=== PATIENT | female | born 1990 | race Caucasian/White ===

== ENCOUNTER 2018-08-31 14:53 | Emergency (ER) | payer OTHER ==
[2018-08-31] MEDS ORDERED: IBUPROFEN 600 MG TAB PO ONE (15:57)
--- NOTE | 2018-08-31 15:57 | EDPHY ---
General Time Seen by Provider: 08/31/18 15:49 Narrative: CHIEF COMPLAINT: Fall, and injury HISTORY OF PRESENT ILLNESS: Patient presents with complaints of fall from a roller blades with injury to the right hand. She reports rollerblading last night when she fell backwards, landing on her right hand. She thinks that she twisted her hand awkwardly. She states that she has pain in the right hand only, at the base of the little finger. She has no headache or neck pain. No chest, back or abdominal pain. No numbness tingling weakness. The pain the hand is [id number] rest. Moderate to severe with palpation movement. Radiates into the forearm per no pain in the ipsilateral elbow or shoulder. No bleeding or laceration. No other associated complaints or modifying factors. DOMINANT EXTREMITY: Right-hand dominant ESTABLISHED ORTHOPEDIST: None REVIEW OF SYSTEMS: Ten systems reviewed and are negative unless otherwise noted in the HPI PAST MEDICAL HISTORY: Uncomplicated PAST SURGICAL HISTORY: No surgical history SOCIAL HISTORY: Occasional marijuana use. 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 Atraumatic. Pupils equal round react. EOM symmetric. Cardiovascular: Radial pulses are symmetric 2+. There is brisk cap refill the fingers the right hand with good signs of perfusion of the right upper extremity. Neurological: A&O, light and 2 point sensory symmetric on the 4th and 5th fingers of the right hand. Unable to test class 1 owner operator strength due to pain in the hand but interossei strength is symmetric. Skin: Warm and dry, no rash probe mild ecchymosis overlying the dorsum of the right hand over the 4th and 5th metacarpal. No laceration or puncture Extremities: Swelling, tenderness and ecchymosis over the 4th and 5th metacarpals of the right hand. There is no tenderness of the right snuffbox, right elbow radial head. There is no pain with full extension of the right elbow. No tenderness of the right shoulder. Unable to fully test range of motion of the right hand but she does retain flexion extension with movement of the interossei is symmetric to the left upper extremity. Psychiatric: Mood and affect normal DIFFERENTIAL DIAGNOSES: Including but not limited to metacarpal fracture, phalanx fracture, dislocation , subluxation, contusion, hematoma, sprain, strain MDM: 3:40 p.m. Fall with injury to the right hand involving the 4th and 5th MCP joints. There is moderate swelling ecchymosis. Range of motion is difficult to fully test due to pain but she does retain some flexion extension of the hand with no deficit of the wrist. There is no tenderness of the ipsilateral wrist, elbow or shoulder. She is neuro intact with no signs of compartment syndrome. X- rays pending. 4:20 p.m. X-ray as read by me, without radiologist reveals fracture at the base of the right 5th proximal phalanx. There is extension into the MCP joint. There is no dislocation of the finger. This is a closed fracture. She is neuro intact distally. I have ordered a splint placement. 5:00 p.m. Patient re-evaluated. She has been placed in an ulnar gutter splint. We discussed splint care, ice, elevation anti-inflammatories. We discussed follow up with hand surgeon for definitive care and she does have a fracture of the finger that may require open reduction internal fixation. We discussed strict ED precautions for intolerable pain, numbness, tingling, weakness, signs of infection. We discuss pain medication for breakthrough pain as needed. I have answered all of her questions. Her splint is in place and she is neuro intact distally. She is discharged home stable condition Procedure: splint placement Indication: Right little finger proximal phalanx fracture Consent: Verbal Description: In conjunction with ED oil well fishing tool technician, Patient was placed in an ulnar gutter using Ortho Glass and Wallace wrap. This was done with flexion of the MCP of the 4th and 5th fingers and extension of the wrist. She tolerated this well. No complication. CMS intact postprocedure. SUPERVISION: This patient was independently evaluated without direct involvement of or examination by the attending physician. - Diagnostics Imaging Results: Imaging Impressions Hand X-Ray 08/31/18 14:58 Impression: Acute fracture involving the metadiaphyseal base of the fifth digit proximal phalanx. - History Smoking Status: Current some day smoker - Objective Vital Signs: Initial Vital Signs Temperature (C) 98.2 F 08/31/18 14:57 Heart Rate 92 08/31/18 14:57 Respiratory Rate 16 08/31/18 14:57 Blood Pressure 110/75 08/31/18 14:57 O2 Sat (%) 97 08/31/18 14:57 O2 Delivery Mode Room Air Allergies/Adverse Reactions: No Known Allergies Allergy (Verified 08/31/18 14:57) Home Medications: Medication Instructions Recorded Lutera-28 Tablet 10/12/16 oxyCODONE HCL/ACETAMINOPHEN 1 each PO Q4-6PRN PRN #7 tablet 08/31/18 [Percocet 5-325 mg Tablet] Medications Given: Discontinued Medications Ibuprofen (Motrin) 600 mg PO EDNOW ONE Stop: 08/31/18 15:58 Last Admin: 08/31/18 16:04 Dose: 600 mg Departure - Departure Disposition: Home, Routine, Self-Care Clinical Impression: Closed fracture of proximal phalanx of finger of right hand Hand sprain Qualifiers: Encounter type: initial encounter Laterality: right Qualified Code(s): S63.91XA - Sprain of unspecified part of right wrist and hand, initial encounter Condition: Good Instructions: Finger Fracture (ED) Additional Instructions: 1. Medications as discussed as needed, including ibuprofen 600mg every 8 hours as needed. Do not take in conjunction with anticoagulants or other NSAIDs 2. Follow up with hand surgeon for definitive care 3. Rest, ice and elevation often. 4. Keep your splint in place at all times until seen by the specialist 5. ED precautions as discussed for worsening pain, redness, fever, changes in range of motion, changes in sensation 6. Pain medication as prescribed as needed for breakthrough pain Referrals: Edi Ordonez MD [Medical Doctor] - As per Instructions Prescriptions: oxyCODONE HCL/ACETAMINOPHEN [Percocet 5-325 mg Tablet] 1 each PO Q4-6PRN PRN #7 tablet PRN Reason: Pain, Breakthrough
[2018-08-31 17:29] VITALS: BP 113/83
== END 2018-08-31 17:49 | disposition home or self-care (01) ==
PROC: 2W3EX1Z Immobilization of Right Hand using Splint (ICD-10-PCS; principal; 2018-08-31)
DX: S62.647A Nondisplaced fracture of proximal phalanx of left little finger, initial encounter for closed fracture (principal); S63.91XA Sprain of unspecified part of right wrist and hand, initial encounter; Y93.51 Activity, roller skating (inline) and skateboarding; V00.121A Fall from non-in-line roller-skates, initial encounter; Y99.8 Other external cause status

== ENCOUNTER → 2018-09-15 | Outpatient (CLI) | payer OTHER | LOC: BMCIMAGING 16:07 | PROVIDERS: ATTEND Physician Assistant | DX: S62.646D Nondisplaced fracture of proximal phalanx of right little finger, subsequent encounter for fracture with routine healing (principal) ==

== ENCOUNTER → 2018-09-29 | Outpatient (CLI) | payer OTHER | LOC: BMCIMAGING 16:15 | PROVIDERS: ATTEND Physician Assistant | DX: S62.646D Nondisplaced fracture of proximal phalanx of right little finger, subsequent encounter for fracture with routine healing (principal) ==

== ENCOUNTER → 2018-10-27 | Outpatient (CLI) | payer OTHER | LOC: BMCIMAGING 16:13 | PROVIDERS: ATTEND Physician Assistant | DX: S62.606D Fracture of unspecified phalanx of right little finger, subsequent encounter for fracture with routine healing (principal) ==